=== PATIENT | female | born 1980 | race Caucasian/White ===

== ENCOUNTER 2017-11-13 12:56 | Emergency (ER) | payer BC, OTHER ==
[~2017-11-13] VITALS: Ht 144.8 cm; Wt 40.2 kg
[2017-11-13 13:04] VITALS: TEMP 36.8
--- NOTE | 2017-11-13 14:40 | EMERGENCY ROOM VISIT NOTE ---
History First contact with patient: 14:05 Chief Complaint: ABDOMINAL PAIN Stated Complaint: PAIN IN BLADDER Nursing Triage Summary: Pt reports right lower abdominal/pelvic pain for 2 weeks. Denies N/V. Denies urinary symptoms. History of Present Illness The patient is a 36 year old female who presents to the Emergency Room with complaints of pelvic pain that started approximately 3 weeks ago. The patient states that she recalls standing up and having a sudden sharp pain in her lower abdomen, and states "it felt like my bladder fell." She has been having ongoing pelvic pain since that time, the pain is constant, worse with certain movements, better with rest, was 6/10 with walking, currently rates as 2/10. She has not taken any medications for the pain. She reports some urinary frequency, but denies any other symptoms of dysuria, hesitancy, urgency, or hematuria. She states that she just started her period yesterday, she denies any chance of . She has had 3 children, 2 vaginal deliveries, and her last child was born . She also said her gallbladder out, and reports having a condition and that required a large portion of her intestines to be removed. She is monogamous and denies concern for STDs. She denies any pain or bleeding with intercourse. She denies any fevers or chills, chest pain , shortness of breath, back pain, nausea or vomiting, diarrhea, constipation, black or bloody stools, abnormal vaginal discharge, or rash. Review of Systems A complete 10 point review of systems was reviewed with the patient with pertinent positives and negatives as per history of present illness. All else were negative. Past Medical/Surgical History Medical Problems: (1) Hx of cholecystectomy Family History Diabetes mellitus FHx: cancer FHx: gallbladder disease FHx: lung disease Hypertension Kidney stones Social History Smoking Status: Current Every Day Smoker Alcohol Use: none Occupation Status: unemployed Current/Historical Medications No Active Prescriptions or Reported Meds Allergies Reviewed in chart Physical Exam Vital Signs Date Time Temp Pulse Resp B/P (MAP) Pulse Ox O2 Delivery O2 Flow Rate FiO2 11/13/17 17:55 62 16 115/73 99 Room Air 11/13/17 16:00 65 16 120/72 99 Room Air 11/13/17 15:00 72 16 115/76 99 Room Air 11/13/17 13:04 36.8 97 16 113/79 99 Room Air Physical Exam CONSTITUTIONAL: Pleasant and cooperative. No acute distress. Well appearing and well nourished. HEENT: Normocephalic, atraumatic. Pupils equal, round and reactive to light, EOMI. TMs normal. Pharynx normal. NECK: Supple, full active range of motion without discomfort. RESPIRATORY: Clear to auscultation bilaterally with no wheezing, crackles, rhonchi or stridor. Equal expansion bilaterally. CARDIOVASCULAR: Regular rate and rhythm with no murmurs, rubs or gallops. Normal peripheral perfusion. No edema. GASTROINTESTINAL: Soft, mildly tender in the suprapubic region, nondistended. No McBurney's point tenderness, negative Rovsing, negative psoas. No rebound tenderness or guarding. No palpable masses or HSM. Bowel sounds present in all quadrants. PELVIC EXAM: VULVA: No ulcers, vesicles or atrophy. VAGINA: Clear discharge, no foul odor, no blood. CERVIX: Closed, pink, nontender, no cervical motion tenderness, no discharge. UTERUS: Normal size, nontender. ADNEXA: No masses or tenderness. A nurse was present as a barrel turner during the examination. MUSCULOSKELETAL: Full range of motion of all joints without discomfort. INTEGUMENTARY: No rash or other significant dermatologic conditions noted. NEUROLOGIC: Alert and oriented X 4 with normal affect. Normal speech. No focal neurologic deficits noted. Normal gait observed. Medical Decision & Procedures ER Provider Diagnostic Interpretation: PELVIC COMPLETE NON OB, TRANSVAG-FEMALE PELVIS CLINICAL HISTORY: 36 years-old Female presenting with eval uterine/bladder prolapse, section, tubal ligation, no bleeding, pelvic pain, last menstrual period 11/09/2018. TECHNIQUE: Real-time grayscale and color and spectral Doppler ultrasound imaging of the pelvis was performed first using a transabdominal probe and subsequently transvaginal for better characterization. COMPARISON: 2007. FINDINGS: Uterus: Normal. Anteverted. The uterus measures 6.2 x 7.7 x 5.2 cm. Endometrial stripe measures 6 mm in thickness. Endometrial cavity contains a small amount of fluid. Endometrium normal appearing. Cervix contains nabothian cysts. Right adnexa: Right ovary normal. Right ovary measures 3.6 x 1.4 x 1.8 cm. Normal color Doppler flow and arterial and venous waveforms within the ovarian parenchyma. Left adnexa: Left ovary normal. Left ovary measures 3.7 x 1.6 x 2.5 cm. Normal color Doppler flow and arterial and venous waveforms within the ovarian parenchyma. Other: No free fluid. IMPRESSION: 1. No evidence of ovarian torsion. 2. Likely blood products within the endometrial cavity related to menstruation in the absence of a positive test. Laboratory Results 11/13/17 14:45 Red Blood Count 4.34, Mean Corpuscular Volume 96.5, Mean Corpuscular Hemoglobin 34.3, Mean Corpuscular Hemoglobin Concent 35.6, Mean Platelet Volume 9.1, Neutrophils (%) (Auto) 63.3, Lymphocytes (%) (Auto) 25.8, Monocytes (%) (Auto) 8.4, Eosinophils (%) (Auto) 1.7, Basophils (%) (Auto) 0.6, Neutrophils # (Auto) 4.17, Lymphocytes # (Auto) 1.70, Monocytes # (Auto) 0.55, Eosinophils # (Auto) 0.11, Basophils # (Auto) 0.04 11/13/17 14:45 Test 11/13/17 14:01 11/13/17 14:45 11/13/17 17:56 Urine Color DK YELLOW Urine Appearance CLEAR (CLEAR) Urine pH 7.5 (4.5-7.5) Urine Specific [place] 1.025 (1.000-1.030) Urine Protein NEG (NEG) Urine Glucose (UA) NEG (NEG) Urine Ketones TRACE (NEG) Urine Occult Blood TRACE (NEG) Urine Nitrite NEG (NEG) Urine Bilirubin NEG (NEG) Urine Urobilinogen NEG (NEG) Urine Leukocyte Esterase NEG (NEG) Urine WBC (Auto) 1-5 /hpf (0-5) Urine RBC (Auto) 5-10 /hpf (0-4) Urine Hyaline Casts (Auto) 1-5 /lpf (0-5) Urine Epithelial Cells (Auto) >30 /lpf (0-5) Urine Bacteria (Auto) NEG (NEG) Urine Test NEG (NEG) White Blood Count 6.58 K/uL (4.8-10.8) Red Blood Count 4.34 M/uL (4.2-5.4) Hemoglobin 14.9 g/dL (12.0-16.0) Hematocrit 41.9 % (37-47) Mean Corpuscular Volume 96.5 fL (80-100) Mean Corpuscular Hemoglobin 34.3 pg (25-34) Mean Corpuscular Hemoglobin Concent 35.6 g/dl (32-36) Platelet Count 254 K/uL (130-400) Mean Platelet Volume 9.1 fL (7.4-10.4) Neutrophils (%) (Auto) 63.3 % Lymphocytes (%) (Auto) 25.8 % Monocytes (%) (Auto) 8.4 % Eosinophils (%) (Auto) 1.7 % Basophils (%) (Auto) 0.6 % Neutrophils # (Auto) 4.17 K/uL (1.4-6.5) Lymphocytes # (Auto) 1.70 K/uL (1.2-3.4) Monocytes # (Auto) 0.55 K/uL (0.11-0.59) Eosinophils # (Auto) 0.11 K/uL (0-0.5) Basophils # (Auto) 0.04 K/uL (0-0.2) RDW Standard Deviation 45.4 fL (36.4-46.3) RDW Coefficient of Variation 12.8 % (11.5-14.5) Immature Granulocyte % (Auto) 0.2 % Immature Granulocyte # (Auto) 0.01 K/uL (0.00-0.02) Anion Gap 8.0 mmol/L (3-11) Est Creatinine Clear Calc Drug Dose 65.3 ml/min Estimated GFR () 122.5 Estimated GFR (Non- 105.7 BUN/Creatinine Ratio 13.5 (10-20) Calcium Level 9.5 mg/dl (8.5-10.1) Medical Decision CC: Patient presenting with complaint of pelvic pain Interpretation of Labs: No leukocytosis, no anemia, no significantly dilated normalities, normal renal function. UA negative for infection, trace blood most likely secondary to menstruation. Negative urine . Differential Diagnosis: Includes, but not limited to UTI, pyelonephritis, ovarian cyst, bladder prolapse, uterine prolapse, PID, musculoskeletal pelvic pain, among others. Medication Reconciliation: I attest that I have personally reviewed the patient' s current medication list. Initial vital signs review: I reviewed the patient's vital signs and interpret them as follows: T: Afebrile; BP: Normotensive; HR: Within normal limits; RR : Within normal limits; Pulse Ox: Within normal limits on room air. Blood pressure screening: The patient was found to have normal blood pressure on screening and does not require follow-up for repeat blood pressure check. Summary: Patient was evaluated at bedside, history and physical exam performed. Patient is alert and oriented, in no acute distress, resting calmly instructor. Patient does have mild tenderness in the suprapubic region to palpation, the abdomen is otherwise benign. No right lower quadrant tenderness or other concerning exam findings for appendicitis. Orders were placed at bedside for labs, UA and urine , pelvic ultrasound to evaluate for ovarian pathology. The patient was offered something for pain, she declines this. Patient discussed with Dr. Rogers, who agrees with my assessment and plan. Labs reviewed as above, unremarkable. She is not . Pelvic exam reveals a closed cervix with no abnormal discharge, no cervical motion tenderness. No uterine or adnexal tenderness. No clinical evidence of uterine or bladder prolapse. The patient did request to have chlamydia and gonorrhea swabs sent during her pelvic exam, this was done. Ultrasound imaging is unremarkable, no evidence of ovarian abnormalities. Patient reassessed multiple times throughout ED stay, she reports that her pain is unchanged. She continues to decline anything for pain, stating she will take something at home if needed. I discussed all results with the patient and plan for discharge, and did encourage her to follow up with her software analyst for further evaluation of her pelvic pain. She was also given strict return precautions should her symptoms worsen in any way, she verbalized understanding. The patient was discharged home in stable condition and ambulatory. Impression Primary Impression: Pelvic pain Departure Information Dispostion Home / Self-Care Condition GOOD Prescriptions No Active Prescriptions or Reported Meds Referrals No Doctor, Assigned (PCP) Patient Instructions ED Pelvic Pain [facility] Additional Instructions You have been treated in the Emergency Department for your pelvic pain. Laboratory results and imaging studies have ruled out any emergent causes for your symptoms which would warrant admission or surgery. You have been tested today for chlamydia and gonorrhea. These tests generally results in 2-3 days, you will be notified regarding any abnormal results. For pain control, you can use the following [id number] medicines (if >12 yo): - Regular strength (325mg/tab) Tylenol (acetaminophen) 2 tabs every 4-6 hours as needed. Do not exceed 10 tablets in a 24 hour period. Avoid taking more than 3000 of Tylenol per day. This includes any other sources of acetaminophen you may take on a regular basis. - Regular strength (200 mg/tab) Advil (ibuprofen) 3 tabs every 6-8 hours as needed. Do not exceed a dose of 2400 mg per day. Drink plenty of fluids to stay well hydrated. Please follow-up with your primary care provider or your software analyst for continued management of your pelvic pain. Return to the emergency department if your symptoms worsen, including severe worsening abdominal pain, severe nausea or vomiting, bloody or black stools, blood in your urine, fever/chills, or any other concerns. Work Instructions Return To Work: 1 day
[2017-11-13 14:41] VITALS: Ht 144.8 cm; Wt 40.2 kg
[2017-11-13 14:55] LABS: BASO % 0.6 %; BASO ABS # 0.04 K/uL (0-0.2); EOS % 1.7 %; EOS ABS # 0.11 K/uL (0-0.5); HEMATOCRIT 41.9 % (37-47); HEMOGLOBIN 14.9 g/dL (12.0-16.0); IG# 0.01 K/uL (0.00-0.02); LYMPH % 25.8 %; MEAN CELL VOLUME 96.5 fL (80-100); MEAN CORPUSCULAR HEMOGLOBIN 34.3 pg (25-34); MEAN CORPUSCULAR HGB CONC 35.6 g/dl (32-36); MEAN PLATELET VOLUME 9.1 fL (7.4-10.4); MONO % 8.4 %; MONO ABS # 0.55 K/uL (0.11-0.59); NEUT % 63.3 %; NEUT ABS # 4.17 K/uL (1.4-6.5); PLATELET COUNT 254 K/uL (130-400); RED CELL DISTRIBUTION WIDTH CV 12.8 % (11.5-14.5); RED CELL DISTRIBUTION WIDTH SD 45.4 fL (36.4-46.3); WHITE BLOOD COUNT 6.58 K/uL (4.8-10.8)
[2017-11-13 15:12] LABS: CALCIUM 9.5 mg/dl (8.5-10.1); CREATININE 0.74 mg/dl (0.60-1.20); POTASSIUM 3.6 mmol/L (3.5-5.1)
--- NOTE | 2017-11-13 17:23 | DIAGNOSTIC IMAGING REPORT ---
PELVIC COMPLETE NON OB, TRANSVAG-FEMALE PELVIS CLINICAL HISTORY: 36 years-old Female presenting with eval uterine/bladder prolapse, section, tubal ligation, no bleeding, pelvic pain, last menstrual period 11/09/2018. TECHNIQUE: Real-time grayscale and color and spectral Doppler ultrasound imaging of the pelvis was performed first using a transabdominal probe and subsequently transvaginal for better characterization. COMPARISON: 2007. FINDINGS: Uterus: Normal. Anteverted. The uterus measures 6.2 x 7.7 x 5.2 cm. Endometrial stripe measures 6 mm in thickness. Endometrial cavity contains a small amount of fluid. Endometrium normal appearing. Cervix contains nabothian cysts. Right adnexa: Right ovary normal. Right ovary measures 3.6 x 1.4 x 1.8 cm. Normal color Doppler flow and arterial and venous waveforms within the ovarian parenchyma. Left adnexa: Left ovary normal. Left ovary measures 3.7 x 1.6 x 2.5 cm. Normal color Doppler flow and arterial and venous waveforms within the ovarian parenchyma. Other: No free fluid. IMPRESSION: 1. No evidence of ovarian torsion. 2. Likely blood products within the endometrial cavity related to menstruation in the absence of a positive test. Electronically signed by: Grant Ann M.D. 11/13/2017 5:22 PM Dictated Date/Time: 11/13/2017 5:18 PM
[2017-11-13 17:55] VITALS: BP 115/73; PULSE 62; O2SAT 99
== END 2017-11-13 18:26 | disposition home or self-care (01) ==
LOC: C.EDB 12:57 → C.EDC 18:26
DX: R10.2 Pelvic and perineal pain (principal); F17.200 Nicotine dependence, unspecified, uncomplicated; Z98.891 History of uterine scar from previous surgery; Z90.49 Acquired absence of other specified parts of digestive tract; Z83.3 Family history of diabetes mellitus; Z82.49 Family history of ischemic heart disease and other diseases of the circulatory system; Z84.1 Family history of disorders of kidney and ureter

== ENCOUNTER → 2017-12-23 | Outpatient (CLI) | payer OTHER | END | disposition home or self-care (01) | LOC: C.PAPS 15:32 | PROVIDERS: ATTEND Obstetrics & Gynecology | DX: Z01.419 Encounter for gynecological examination (general) (routine) without abnormal findings (principal) ==

== ENCOUNTER 2018-02-28 16:41 | Emergency (ER) | payer OTHER ==
[~2018-02-28] VITALS: Ht 147.3 cm; Wt 40.1 kg
[2018-02-28 16:47] VITALS: TEMP 36.6; Ht 147.3 cm; Wt 40.1 kg
[2018-02-28] MEDS ORDERED: METOCLOPRAMIDE HCL INJ 5 MG/ML 2 ML VIAL IV STA (17:07)
[2018-02-28] MEDS ORDERED: SODIUM CHLORIDE 0.9% 1000ML 1,000 ML IV STA (17:07)
--- NOTE | 2018-02-28 17:08 | EMERGENCY ROOM VISIT NOTE ---
History Report prepared by Herve: Kathi Fisher Under the Supervision of: Dr. Avinash Gilliland M.D. First contact with patient: 16:57 Chief Complaint: FLANK PAIN Stated Complaint: SHARP PAIN IN STOMACH AND BACK History of Present Illness The patient is a 37 year old female who presents to the Emergency Room with complaints of worsening right lower quadrant abdominal pain beginning this morning. The patient describes the pain as sharp and states that it radiates to her back. The patient denies having vomiting and diarrhea. The patient states that her pain is exacerbated with palpation. She reports a history of intestinal malrotation and a cholecystectomy. Source of History: patient Onset: this morning Position: abdomen (RLQ) Quality: sharp Timing: worsening Modifying Factors (Worsening): other (palpation) Associated Symptoms: + back pain, No vomiting, No diarrhea Review of Systems See HPI for pertinent positives & negatives. A total of 10 systems reviewed and were otherwise negative. Past Medical & Surgical Medical Problems: (1) Hx of cholecystectomy (2) Intestinal malrotation Family History Diabetes mellitus FHx: cancer FHx: gallbladder disease FHx: lung disease Hypertension Kidney stones Social History Smoking Status: Current Every Day Smoker Alcohol Use: none Marital Status: Housing Status: lives with family Occupation Status: unemployed Current/Historical Medications Scheduled Cephalexin Monohydrate (Keflex), 1 CAP PO BID Allergies Coded Allergies: Amoxicillin (Verified Allergy, Intermediate, HIVES, 02/28/18) Codeine (Verified Allergy, Intermediate, HIVES, 02/28/18) Fentanyl (Verified Allergy, Intermediate, hives, 02/28/18) COULDN'T TALK Morphine (Verified Allergy, Intermediate, ITCHING ALL OVER, 02/28/18) ITCHING ALL OVER Hydrocodone (Verified Allergy, Mild, ITCHY, 02/28/18) Aspirin (Verified Allergy, Unknown, 02/28/18) Penicillins (Verified Allergy, Unknown, 02/28/18) Quinolones (Verified Adverse Reaction, Intermediate, EXTREME NAUSEA AND PAIN, 02/28/18) Physical Exam Vital Signs Date Time Temp Pulse Resp B/P (MAP) Pulse Ox O2 Delivery O2 Flow Rate FiO2 02/28/18 20:47 65 16 98/62 97 Room Air 02/28/18 18:51 85 15 98/61 100 Room Air 02/28/18 18:03 62 114/70 100 Room Air 02/28/18 16:47 36.6 101 18 108/40 100 Room Air Physical Exam GENERAL: Awake, alert, well-appearing, in no acute distress HENT: Normocephalic, atraumatic. Oropharynx unremarkable. EYES: Normal conjunctiva. Sclera non-icteric. NECK: Supple. No nuchal rigidity. FROM. No JVD. RESPIRATORY: Clear to auscultation. CARDIAC: Regular rate, normal rhythm. Extremities warm and well perfused. Pulses equal. ABDOMEN: Soft, non-distended. Mildly tender in the right upper quadrant. No rebound or guarding. No masses. RECTAL: Deferred. MUSCULOSKELETAL: Chest examination reveals no tenderness. The back is symmetrical on inspection without obvious abnormality. There is no CVA tenderness to palpation. No joint edema. LOWER EXTREMITIES: Calves are equal size bilaterally and non-tender. No edema. No discoloration. NEURO: Normal sensorium. No sensory or motor deficits noted. SKIN: No rash or jaundice noted. Medical Decision & Procedures ER Provider Diagnostic Interpretation: Radiology results as stated below per my review and radiologist interpretation: ABD/PELVIS IV AND ORAL CONT CLINICAL HISTORY: 37 years-old Female presenting with Pt c/o abd pain, hx of malrotaion. TECHNIQUE: Multidetector CT of the abdomen and pelvis was performed after the administration of oral and intravenous contrast. IV contrast: 93 mL of Optiray 320. A dose lowering technique was used consistent with the principles of ALARA (as low as reasonably achievable). COMPARISON: 09/10/2010. CT DOSE (mGy.cm): The estimated cumulative dose is 266.33 mGy.cm. FINDINGS: [employer] topogram: Unremarkable. Lung bases: Minimal basilar opacities, likely atelectasis. Mosaic attenuation suggest small airways disease. Normal heart size. No pericardial or pleural effusion. 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 No liver lesion. Patent hepatic vasculature. Biliary: Mild biliary ductal prominence likely a reservoir effect in the post cholecystectomy state. Gallbladder surgically absent. Pancreas: Normal. Spleen: Normal. Adrenal glands: Normal. Kidneys and ureters: Several punctate nonobstructing renal calculi evident at the upper pole the right kidney. Several small well-defined hypodensities in the kidneys many too small to characterize but likely representing simple cysts. Ureters are poorly assessed due to the paucity of intra-abdominal fat. No hydronephrosis. Bladder: Incompletely evaluated secondary to underdistention. Pelvic organs: Uterus and ovaries normal. The ovaries contain numerous follicles bilaterally. Bowel: Marked stool burden in the rectum. The colon is left-sided. The ileocecal valve is located in the left lower quadrant. An apparent blind-ending loop of bowel contiguous with the cecum may represent an appendix versus a convoluted cecum. The ligament of Treitz is located to the left of midline. Small bowel is dilated though there is no complete bowel obstruction as contrast passes into the large bowel. No focal transition point is appreciable. Peritoneal cavity: Small amount of free fluid in the lower abdomen and pelvis. No free intraperitoneal gas. Lymph nodes: No enlarged lymph nodes in the abdomen or pelvis. Vasculature: Aorta and IVC patent and normal in caliber. The SMA/SMV relationship is reversed with the SMA to the right of the SMV along their proximal course. Abdominal wall: Postsurgical changes of the umbilical abdominal wall suggested. Musculoskeletal: Normal. Bone island noted in the left ischium. IMPRESSION: 1. Small amount of abdominopelvic ascites, which may possibly be physiologic in a female though this is slightly greater than expected. No other convincing evidence of acute intra-abdominal pathology. 2. Congenital and/or postsurgical changes of the bowel with intestinal malrotation. Mild distention of small bowel without convincing evidence of obstruction. 3. Status post cholecystectomy with biliary ductal dilatation likely due to a reservoir effect in the post cholecystectomy state. 4. Postsurgical or congenital changes of the right hepatic lobe. Electronically signed by: Grant Ann M.D. 02/28/2018 8:19 PM Dictated Date/Time: 02/28/2018 8:08 PM Laboratory Results 02/28/18 17:55 Red Blood Count 4.24, Mean Corpuscular Volume 97.2, Mean Corpuscular Hemoglobin 34.9, Mean Corpuscular Hemoglobin Concent 35.9, Mean Platelet Volume 9.4, Neutrophils (%) (Auto) 83.4, Lymphocytes (%) (Auto) 10.7, Monocytes (%) (Auto) 5.6, Eosinophils (%) (Auto) 0.1, Basophils (%) (Auto) 0.1, Neutrophils # (Auto) 11.97, Lymphocytes # (Auto) 1.53, Monocytes # (Auto) 0.81, Eosinophils # (Auto) 0.01, Basophils # (Auto) 0.02 02/28/18 17:55 Test 02/28/18 17:22 02/28/18 17:55 Urine Color YELLOW Urine Appearance CLEAR (CLEAR) Urine pH 5.0 (4.5-7.5) Urine Specific Dickerson 1.022 (1.000-1.030) Urine Protein NEG (NEG) Urine Glucose (UA) NEG (NEG) Urine Ketones TRACE (NEG) Urine Occult Blood 1+ (NEG) Urine Nitrite NEG (NEG) Urine Bilirubin NEG (NEG) Urine Urobilinogen NEG (NEG) Urine Leukocyte Esterase NEG (NEG) Urine WBC (Auto) 1-5 /hpf (0-5) Urine RBC (Auto) 0-4 /hpf (0-4) Urine Hyaline Casts (Auto) 1-5 /lpf (0-5) Urine Epithelial Cells (Auto) >30 /lpf (0-5) Urine Bacteria (Auto) NEG (NEG) Urine Test NEG (NEG) White Blood Count 14.36 K/uL (4.8-10.8) Red Blood Count 4.24 M/uL (4.2-5.4) Hemoglobin 14.8 g/dL (12.0-16.0) Hematocrit 41.2 % (37-47) Mean Corpuscular Volume 97.2 fL (80-100) Mean Corpuscular Hemoglobin 34.9 pg (25-34) Mean Corpuscular Hemoglobin Concent 35.9 g/dl (32-36) Platelet Count 297 K/uL (130-400) Mean Platelet Volume 9.4 fL (7.4-10.4) Neutrophils (%) (Auto) 83.4 % Lymphocytes (%) (Auto) 10.7 % Monocytes (%) (Auto) 5.6 % Eosinophils (%) (Auto) 0.1 % Basophils (%) (Auto) 0.1 % Neutrophils # (Auto) 11.97 K/uL (1.4-6.5) Lymphocytes # (Auto) 1.53 K/uL (1.2-3.4) Monocytes # (Auto) 0.81 K/uL (0.11-0.59) Eosinophils # (Auto) 0.01 K/uL (0-0.5) Basophils # (Auto) 0.02 K/uL (0-0.2) RDW Standard Deviation 45.4 fL (36.4-46.3) RDW Coefficient of Variation 12.9 % (11.5-14.5) Immature Granulocyte % (Auto) 0.1 % Immature Granulocyte # (Auto) 0.02 K/uL (0.00-0.02) Anion Gap 7.0 mmol/L (3-11) Est Creatinine Clear Calc Drug Dose 77.7 ml/min Estimated GFR () 134.0 Estimated GFR (Non- 115.6 BUN/Creatinine Ratio 15.4 (10-20) Calcium Level 9.4 mg/dl (8.5-10.1) Total Bilirubin 0.4 mg/dl (0.2-1) Direct Bilirubin 0.1 mg/dl (0-0.2) Aspartate Amino Transf (AST/SGOT) 14 U/L (15-37) Alanine Aminotransferase (ALT/SGPT) 16 U/L (12-78) Alkaline Phosphatase 77 U/L (45-117) Total Protein 7.5 gm/dl (6.4-8.2) Albumin 4.3 gm/dl (3.4-5.0) Lipase 91 U/L (73-393) Labs reviewed by ED physician. Medications Administered Medications (Trade) Dose Ordered Sig/Kameron Route Start Time Stop Time Status Last Admin Dose Admin Metoclopramide HCl (Reglan Inj) 10 mg NOW STAT IV 02/28/18 17:07 02/28/18 17:10 DC 02/28/18 17:31 10 MG Sodium Chloride 1,000 ml @ 999 mls/hr Q1H1M STAT IV 02/28/18 17:07 02/28/18 18:07 DC 02/28/18 17:31 999 MLS/HR Ceftriaxone Sodium (Rocephin Inj) 1 gm NOW STAT IV 02/28/18 20:31 02/28/18 20:32 DC 02/28/18 20:44 1 GM ED Course 1700: Past medical records reviewed. The patient was evaluated in room B10. A complete history and physical examination was performed. 1706: Ordered Sodium Chloride 1000 ml @ 999 mls/hr IV, Reglan Inj 10 mg IV. 1806: I checked on the patient. 2030: Ordered Rocephin Inj 1 gm IV. 2034: Upon reexamination the patient is resting. I discussed results and treatment plan with the patient. She verbalizes agreement and understanding. The patient is ready for discharge. Medical Decision Differential diagnosis: Etiologies such as appendicitis, diverticulitis, PUD, biliary pathology, UTI, pancreatitis, obstruction, mesenteric ischemia, aortic pathology, infections, inflammatory bowel disease, renal colic, as well as others were entertained. This is a 37-year-old female who presents emergency department complaining of abdominal pain that has started since this morning. Patient has a complicated medical history and based on this along with the fact that the patient is tender and has an elevation in her white blood cell count and using shared medical decision making with both patient and her family we decided to have a CAT scan of the abdomen and pelvis performed. In addition she has a normal renal profile normal liver profile normal lipase she is not . Her urine has a slight amount of blood in it. She was given a normal saline bolus along with Reglan. Repeat examination revealed improvement in the patient's symptoms. Serial abdominal examinations were performed and the patient in the emergency department and at no time did the patient exhibit a surgical abdomen. The patient describes the pain as coming on suddenly this morning and based on her CAT scan of the abdomen and pelvis I am wondering if the patient is suffering from a ruptured ovarian cyst. In addition she also needs to move her bowels. I do believe that the contrast will help do this. The patient does have some blood in her urine therefore she will be placed on Rocephin and will continue her on Keflex. I stressed the need for follow-up with gynecology for the ovarian cysts and to return to the emergency department if she develops fevers or severe abdominal pain. Patient and family were in agreement with treatment plan. Medication Reconcilliation Current Medication List: was personally reviewed by me Blood Pressure Screening Patient's blood pressure: Normal blood pressure Impression Primary Impression: Right flank pain Additional Impressions: Ovarian cyst UTI (urinary tract infection) Scribe Attestation The scribe's documentation has been prepared under my direction and personally reviewed by me in its entirety. I confirm that the note above accurately reflects all work, treatment, procedures, and medical decision making performed by me. Departure Information Dispostion Home / Self-Care Prescriptions Cephalexin Monohydrate (Keflex) 500 Mg Cap 1 CAP PO BID for 10 Days, #20 CAP Prov: Avinash Gilliland MD 02/28/18 Referrals No Doctor, Assigned (PCP) Wilber Luo M.D. Forms HOME CARE DOCUMENTATION FORM, IMPORTANT VISIT INFORMATION Patient Instructions Cysts Ovarian, Diet Clear Liquid Dc, ED Flank Pain Uncertain Cause, My [facility] Additional Instructions You have been examined and treated today on an emergency basis only. This is not a substitute for, or an effort to provide, complete comprehensive medical care. It is impossible to recognize and treat all injuries or illnesses in a single emergency department visit. It is therefore important that you follow up closely with your PCP. Call as soon as possible for an appointment. Thank you for your time and consideration. I look forward to speaking with you again soon. Please don't hesitate to call us if you have any questions. Problem Qualifiers Additional Impressions: Ovarian cyst Laterality: right Qualified Codes: N83.201 - Unspecified ovarian cyst, right side UTI (urinary tract infection) Urinary tract infection type: acute cystitis Hematuria presence: with hematuria Qualified Codes: N30.01 - Acute cystitis with hematuria
[2018-02-28] MEDS ORDERED: OPTIRAY 320 IV PRN (17:15)
[2018-02-28 18:15] LABS: BASO % 0.1 %; BASO ABS # 0.02 K/uL (0-0.2); EOS % 0.1 %; EOS ABS # 0.01 K/uL (0-0.5); HEMATOCRIT 41.2 % (37-47); HEMOGLOBIN 14.8 g/dL (12.0-16.0); IG# 0.02 K/uL (0.00-0.02); LYMPH % 10.7 %; LYMPH ABS # 1.53 K/uL (1.2-3.4); MEAN CELL VOLUME 97.2 fL (80-100); MEAN CORPUSCULAR HEMOGLOBIN 34.9 pg (25-34); MEAN CORPUSCULAR HGB CONC 35.9 g/dl (32-36); MEAN PLATELET VOLUME 9.4 fL (7.4-10.4); MONO % 5.6 %; MONO ABS # 0.81 K/uL (0.11-0.59); NEUT % 83.4 %; NEUT ABS # 11.97 K/uL (1.4-6.5); PLATELET COUNT 297 K/uL (130-400); RED CELL DISTRIBUTION WIDTH CV 12.9 % (11.5-14.5); RED CELL DISTRIBUTION WIDTH SD 45.4 fL (36.4-46.3); WHITE BLOOD COUNT 14.36 K/uL (4.8-10.8)
[2018-02-28 18:40] LABS: ALBUMIN 4.3 gm/dl (3.4-5.0); CALCIUM 9.4 mg/dl (8.5-10.1); CREATININE 0.64 mg/dl (0.60-1.20); POTASSIUM 3.6 mmol/L (3.5-5.1); TOTAL PROTEIN 7.5 gm/dl (6.4-8.2)
--- NOTE | 2018-02-28 20:21 | DIAGNOSTIC IMAGING REPORT ---
ABD/PELVIS IV AND ORAL CONT CLINICAL HISTORY: 37 years-old Female presenting with Pt c/o abd pain, hx of malrotaion. TECHNIQUE: Multidetector CT of the abdomen and pelvis was performed after the administration of oral and intravenous contrast. IV contrast: 93 mL of Optiray 320. A dose lowering technique was used consistent with the principles of ALARA (as low as reasonably achievable). COMPARISON: 09/10/2010. CT DOSE (mGy.cm): The estimated cumulative dose is 266.33 mGy.cm. FINDINGS: [employer] topogram: Unremarkable. Lung bases: Minimal basilar opacities, likely atelectasis. Mosaic attenuation suggest small airways disease. Normal heart size. No pericardial or pleural effusion. 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 No liver lesion. Patent hepatic vasculature. Biliary: Mild biliary ductal prominence likely a reservoir effect in the post cholecystectomy state. Gallbladder surgically absent. Pancreas: Normal. Spleen: Normal. Adrenal glands: Normal. Kidneys and ureters: Several punctate nonobstructing renal calculi evident at the upper pole the right kidney. Several small well-defined hypodensities in the kidneys many too small to characterize but likely representing simple cysts. Ureters are poorly assessed due to the paucity of intra-abdominal fat. No hydronephrosis. Bladder: Incompletely evaluated secondary to underdistention. Pelvic organs: Uterus and ovaries normal. The ovaries contain numerous follicles bilaterally. Bowel: Marked stool burden in the rectum. The colon is left-sided. The ileocecal valve is located in the left lower quadrant. An apparent blind-ending loop of bowel contiguous with the cecum may represent an appendix versus a convoluted cecum. The ligament of Treitz is located to the left of midline. Small bowel is dilated though there is no complete bowel obstruction as contrast passes into the large bowel. No focal transition point is appreciable. Peritoneal cavity: Small amount of free fluid in the lower abdomen and pelvis. No free intraperitoneal gas. Lymph nodes: No enlarged lymph nodes in the abdomen or pelvis. Vasculature: Aorta and IVC patent and normal in caliber. The SMA/SMV relationship is reversed with the SMA to the right of the SMV along their proximal course. Abdominal wall: Postsurgical changes of the umbilical abdominal wall suggested. Musculoskeletal: Normal. Bone island noted in the left ischium. IMPRESSION: 1. Small amount of abdominopelvic ascites, which may possibly be physiologic in a female though this is slightly greater than expected. No other convincing evidence of acute intra-abdominal pathology. 2. Congenital and/or postsurgical changes of the bowel with intestinal malrotation. Mild distention of small bowel without convincing evidence of obstruction. 3. Status post cholecystectomy with biliary ductal dilatation likely due to a reservoir effect in the post cholecystectomy state. 4. Postsurgical or congenital changes of the right hepatic lobe. Electronically signed by: Grant Ann M.D. 02/28/2018 8:19 PM Dictated Date/Time: 02/28/2018 8:08 PM
[2018-02-28] MEDS ORDERED: CEFTRIAXONE SOD INJ 1 GM ADDVIAL IV STA (20:31)
[2018-02-28] MEDS ORDERED: CEPH500C PO (20:34)
[2018-02-28 20:47] VITALS: BP 98/62; PULSE 65; O2SAT 97
== END 2018-02-28 20:55 | disposition home or self-care (01) ==
LOC: C.EDB 16:42
DX: R10.31 Right lower quadrant pain (principal); M54.5 Low back pain; N39.0 Urinary tract infection, site not specified; N83.209 Unspecified ovarian cyst, unspecified side; F17.210 Nicotine dependence, cigarettes, uncomplicated; Z88.6 Allergy status to analgesic agent; Z88.0 Allergy status to penicillin; Z88.8 Allergy status to other drugs, medicaments and biological substances